=== PATIENT | female | born 1975 | race Caucasian/White ===

== ENCOUNTER 2023-03-08 15:58 | Emergency (ER) | payer OTHER, SELFPAY ==
[2023-03-08 16:03] VITALS: BP 120/69; PULSE 72; RESP 18; TEMP 36.7; O2SAT 98; BMI 40.7
--- NOTE | 2023-03-08 16:06 | ED.GENADULT ---
HPI - General Adult General Chief complaint: General Medical <KAI No - Last Filed: 03/08/23 20:40> Stated complaint: ? strep throat <KAI No - Last Filed: 03/08/23 20:40> Time Seen by Provider: 03/08/23 16:20 <KAI No - Last Filed: 03/08/23 20:40> Source: patient <KAI Gatica Last Filed: 03/08/23 18:18> Mode of arrival: ambulatory <KAI Gatica Last Filed: 03/08/23 18:18> Limitations: no limitations <KAI Gatica Last Filed: 03/08/23 18:18> History of Present Illness HPI narrative: Patient is a 47 year old assigned female at with no reported medical history presenting to the emergency department today with a sore throat. Patient states that over the last day or so she has had a sore throat. Patient denies any dizziness, lightheadedness, abdominal pain, nausea, vomiting, fever, chills, blurry vision, double vision, loss of vision, chest pain, difficulty breathing, shortness of breath, back pain, night sweats, pain with urination, increased urinary frequency, increased urinary urgency, blood in her urine or stool, syncope or a near syncopal episode, recent trauma or falls, bowel incontinence, bladder incontinence, bowel retention, bladder retention, or any other complaints at this time. <KAI Gatica Last Filed: 03/08/23 18:18> Onset (ago): day(s) (1) <KAI Gatica Last Filed: 03/08/23 18:18> Severity: mild <KAI Gatica Last Filed: 03/08/23 18:18> Severity scale (1-10): 2 <KAI Gatica Last Filed: 03/08/23 18:18> Relieving factors: none <KAI Gatica Last Filed: 03/08/23 18:18> Exacerbating factors: none <KAI Gatica Last Filed: 03/08/23 18:18> Associated symptoms: denies other symptoms <KAI Gatica Last Filed: 03/08/23 18:18> Treatments prior to arrival: none <KAI Gatica Last Filed: 03/08/23 18:18> Related Data Home medications: Previous Rx's Medication Instructions Recorded penicillin V potassium 500 mg 500 mg PO BID 10 days #20 tabs 03/08/23 tablet <KAI No Last Filed: 03/08/23 20:40> Allergies/adverse reactions: Allergies Allergy/AdvReac Type Severity Reaction Status Date / Time NSAIDS (Non-Steroidal Allergy Unknown Verified 03/08/23 16:06 Anti-Inflamma <KAI No Last Filed: 03/08/23 20:40> Review of Systems Constitutional: Constitutional: Reports no additional constitutional complaints, Denies chills, Denies fever(s) and Denies night sweats <KAI Gatica Last Filed: 03/08/23 18:18> Eyes: Eyes: Reports no additional eye complaints, Denies blurry vision, Denies change in vision, Denies diplopia, Denies eye discharge, Denies loss of vision and Denies eye pain <KAI Gatica Last Filed: 03/08/23 18:18> ENT: Denies dizziness and Reports sore throat <KAI Gatica Last Filed: 03/08/23 18:18> Cardiovascular: Cardiovascular: Reports no additional cardiovascular complaints, Denies chest pain, Denies lightheadedness, Denies Loss of Consciousness and Denies dyspnea <KAI Gatica Last Filed: 03/08/23 18:18> Respiratory: Respiratory: Reports no additional respiratory complaints and Denies dyspnea <KAI Gatica Last Filed: 03/08/23 18:18> Gastrointestinal: Gastrointestinal: Reports no additional gastrointestinal complaints, Denies abdominal pain, Denies melena, Denies hematochezia, Denies change in bowel habits and Denies change in stool character <KAI Gatica Last Filed: 03/08/23 18:18> Genitourinary: Genitourinary: Denies hematuria, Denies urinary frequency, Denies dysuria, Denies urinary incontinence, Denies urinary hesitancy and Denies urinary urgency <KAI Gatica Last Filed: 03/08/23 18:18> Musculoskeletal: Musculoskeletal: Reports no additional musculoskeletal complaints, Denies numbness and Denies tingling <KAI Gatica - Last Filed: 03/08/23 18:18> Neurologic: Denies dizziness, Denies loss of vision, Denies numbness and Denies tingling <KAI Gatica - Last Filed: 03/08/23 18:18> Psychiatric: Psychiatric: Reports no additional psychiatric complaints <KAI Gatica - Last Filed: 03/08/23 18:18> Endocrine: Endocrine: Reports no additional endocrine complaints <KAI Gatica - Last Filed: 03/08/23 18:18> Hematologic/Lymphatic: Hematologic/Lymphatic: Reports no additional hematologic/lymphatic complaints <KAI Gatica - Last Filed: 03/08/23 18:18> Allergic/Immunologic: Allergic/Immunologic: Reports no additional allergic/immunologic complaints <KAI Gatica - Last Filed: 03/08/23 18:18> PMF Past Medical History Attestation statement: The following information was validated with the patient. <KAI Gatica - Last Filed: 03/08/23 18:18> Source: old records reviewed and nursing notes reviewed <KAI Gatica - Last Filed: 03/08/23 18:18> Social History Social History: Social History Advance Directives: No Advance Directives Information Provided: No <KAI No - Last Filed: 03/08/23 20:40> Physical Exam ED Vital Signs: Vital Signs - 24 hr 03/08/23 16:03 Temperature 98.0 F Pulse Rate 72 Respiratory Rate 18 Blood Pressure 120/69 Pulse Oximetry 98 Oxygen Delivery Method Room Air BMI result Body Mass Index 40.7 <KAI No - Last Filed: 03/08/23 20:40> Vital Signs - 24 hr 03/08/23 16:03 Temperature 98.0 F Pulse Rate 72 Respiratory Rate 18 Blood Pressure 120/69 Pulse Oximetry 98 Oxygen Delivery Method Room Air BMI result Body Mass Index 40.7 <KAI Gatica - Last Filed: 03/08/23 18:18> Const General: cooperative, no acute distress, alert and awake <Nabila Fisher CA - Last Filed: 03/08/23 18:18> Nutritional Appearance: well nourished <Nabila Fisher CA - Last Filed: 03/08/23 18:18> Orientation/consciousness: patient oriented x3 <Nabila Fisher CA - Last Filed: 03/08/23 18:18> Limitations: no limitations <Nabila Fisher CA - Last Filed: 03/08/23 18:18> HENMT Head: Yes normal to inspection and Yes atraumatic <Nabila Fisher CA - Last Filed: 03/08/23 18:18> Ears: hearing grossly normal bilaterally and external ears normal <Nabila Fisher CA - Last Filed: 03/08/23 18:18> General nose exam: Normal external nose present, no nasal discharge noted and no epistaxis <Nabila Fisher CA - Last Filed: 03/08/23 18:18> Face and sinus: Yes normal facial exam, No abrasion and No laceration <Nabila Fisher CA - Last Filed: 03/08/23 18:18> Mouth: Normal oral and palatal mucosa present, no drooling and no muffled voice <Nabila Fisher CA - Last Filed: 03/08/23 18:18> Throat: Yes abnormal tonsil (bilateral erythema with exudates) <Nabila Fisher CA - Last Filed: 03/08/23 18:18> Eyes General: appearance normal, both eyes and all related structures <Nabila Fisher CA - Last Filed: 03/08/23 18:18> Periorbital: periorbital findings normal <Nabila Fisher CA - Last Filed: 03/08/23 18:18> Eyelids: Yes eyelids normal <Nabila Fisher CA - Last Filed: 03/08/23 18:18> Conjunctivae: conjunctivae normal <Nabila Fisher CA - Last Filed: 03/08/23 18:18> Pupils: Equal, round and reactive pupils present <Nabila Fisher PA - Last Filed: 03/08/23 18:18> EOM: EOMs intact bilaterally <Nabila Fisher CA - Last Filed: 03/08/23 18:18> Neck Neck: Yes normal visual inspection, Yes full ROM and Yes no lymphadenopathy <Nabilacarmel Friendjolene CA - Last Filed: 03/08/23 18:18> Chest Chest palpation & inspection: normal inspection of the chest <Nabila KAI Fisher - Last Filed: 03/08/23 18:18> Resp Effort & Inspection: normal respiratory effort and able to speak in complete sentences <Nabila Natalia CA - Last Filed: 03/08/23 18:18> GI Inspection: Yes normal to inspection <KAI Gatica - Last Filed: 03/08/23 18:18> Neuro General: patient oriented x3 and moves all extremities <Nabila Fisher CA - Last Filed: 03/08/23 18:18> Cranial nerves: Yes Equal, round and reactive pupils present <KAI Gatica - Last Filed: 03/08/23 18:18> Cognition (Neuro): normal cognition <Nabila Fisher CA - Last Filed: 03/08/23 18:18> Motor exam (neuro): 5/5 motor strength present throughout <Nabila Fisher CA - Last Filed: 03/08/23 18:18> Sensory Exam: Normal double simultaneous stimulation for sensation <Nabila Fisher CA - Last Filed: 03/08/23 18:18> Coordination: [id number] test normal <Nabila Fisher CA - Last Filed: 03/08/23 18:18> Extrem General: Yes normal to inspection, Yes full ROM and Yes capillary refill normal <KAI Gatica - Last Filed: 03/08/23 18:18> Psych Appearance: grossly normal <KAI Gatica - Last Filed: 03/08/23 18:18> Mental Status: mental status grossly normal <KAI Gatica - Last Filed: 03/08/23 18:18> Affect: normal affect <KAI Gatica - Last Filed: 03/08/23 18:18> Attitude: cooperative <KAI Gatica - Last Filed: 03/08/23 18:18> Thought process: Normal thought process present <KAI Gatica - Last Filed: 03/08/23 18:18> Thought content: Normal thought content present <KAI Gatica - Last Filed: 03/08/23 18:18> Insight: Good insight present (Psych) <KAI Gatica - Last Filed: 03/08/23 18:18> Course Course Course Narrative: RMMarcell; 47 yold female presents to the ED for sore throat and pmh of strep. Physical exam shows tonsil with exudates. negative for signs of [employer]. strep ordered <KAI No - Last Filed: 03/08/23 20:40> Medical Decision Making Medical Decision Making MDM Narrative: Patient is a 47 year old assigned female at with no reported medical history presenting to the emergency department today with a sore throat. Patient's physical exam showed bilateral tonsilar erythema and exudates. Patient's strep test was negative however, given the patient's physical examination, will cover. I explained my physical exam findings as well as all test results to the patient. I answered all questions asked by the patient. I stressed the importance of the patient taking her medication as prescribed. I stressed the importance of the patient following up with her primary care provider. I stressed the importance of the patient returning to the emergency department immediately if her symptoms were to worsen or if she were to develop any dizziness, shortness of breath, difficulty breathing, chest pain, blurry vision, loss of vision, nausea, vomiting, abdominal pain, fever, chills, back pain, or any other complaints. Patient verbalized agreement and understanding with this treatment plan and discharge. <KAI Gatica - Last Filed: 03/08/23 18:18> Differential Diagnosis Differential Diagnoses: The differential diagnosis associated with the presentation includes <KAI Gatica - Last Filed: 03/08/23 18:18> pharyngitis <KAI Gatica - Last Filed: 03/08/23 18:18> Lab Data [facility] Lab Attestation statement: I reviewed the patient's lab results. <KAI Gatica Last Filed: 03/08/23 18:18> Labs: Lab Results 03/08/23 Range/Units 16:07 S. pyogenes GrpA LAURENT Negative (Negative) <KAI No Last Filed: 03/08/23 20:40> Lab Results 03/08/23 Range/Units 16:07 S. pyogenes GrpA LAURENT Negative (Negative) <KAI Gatica - Last Filed: 03/08/23 18:18> Discharge Plan Discharge Clinical Impression: Pharyngitis <KAI No Last Filed: 03/08/23 20:40> Patient Disposition: Home, Self-Care <KAI No Last Filed: 03/08/23 20:40> Instructions: Pharyngitis (ED) <KAI No Last Filed: 03/08/23 20:40> Additional Instructions: Follow up with your primary care provider. Return to the emergency department immediately if your symptoms worsen or if you develop any dizziness, shortness of breath, difficulty breathing, chest pain, blurry vision, loss of vision, nausea, vomiting, abdominal pain, fever, chills, back pain, or any other complaints. <KAI No Last Filed: 03/08/23 20:40> Prescriptions: New penicillin V potassium 500 mg tablet 500 mg PO BID 10 Days Qty: 20 0RF <KAI No Last Filed: 03/08/23 20:40> Referrals: [facility] [[place] Group] (Call to establish and follow up with a primary care provider. If you already have a primary care provider, please follow up with them.) [facility] [place] [facility] [Provider Group] (Call to establish and follow up with a primary care provider. If you already have a primary care provider, please follow up with them.) [facility] [place] [facility] [Provider Group] (Call to establish and follow up with a primary care provider. If you already have a primary care provider, please follow up with them.) <KAI No - Last Filed: 03/08/23 20:40> Stand Alone Forms: Work/School Release <KAI No Last Filed: 03/08/23 20:40> Interventions: ED Discharge Assessment Last Done: 03/08/23 17:29 <KAI No Last Filed: 03/08/23 20:40> Discharge Date/Time: 03/08/23 17:29 <KAI No Last Filed: 03/08/23 20:40> Print Language: Filipino <KAI No Last Filed: 03/08/23 20:40>
[2023-03-08 16:33] LABS: IDNOW Serial# 08D9AD1C
[2023-03-08 16:34] LABS: Strep A Nucleic Acid Negative (Negative)
== END 2023-03-08 17:29 | disposition home or self-care (01) ==
PROVIDERS: Emergency Provider Student in an Organized Health Care Education/Training Program
DX: J02.9 Acute pharyngitis, unspecified (principal)
CPT/HCPCS: 87651; 99282; 99283

== ENCOUNTER 2023-10-01 17:26 | Emergency (ER) | payer OTHER, SELFPAY ==
--- NOTE | ~2023-10-01 | XR_ITS ---
EXAMINATION: XR CHEST CLINICAL INFORMATION: Chest pain, dyspnea. COMPARISON: None available. TECHNIQUE: 2 views of the chest were obtained. FINDINGS: Normal appearance of the cardiomediastinal silhouette. No focal airspace opacity, pleural effusion or pneumothorax. No pulmonary edema. No acute osseous findings. Right upper quadrant surgical clips. XR/XR chest 2V IMPRESSION: No acute cardiopulmonary findings.
[2023-10-01 17:27] VITALS: BP 137/74; PULSE 90; RESP 18; TEMP 36.8; O2SAT 95; BMI 41.6
--- NOTE | 2023-10-01 17:28 | ECG_ITS ---
Test Reason : CHEST PRESSURE Blood Pressure : / mmHG Vent. Rate : 078 BPM Atrial Rate : 078 BPM P-R Int : 176 ms QRS Dur : 158 ms QT Int : 414 ms P-R-T Axes : 062 172 023 degrees QTc Int : 471 ms Normal sinus rhythm Right bundle branch block Left posterior fascicular block Bifascicular block Abnormal ECG No previous ECGs available Referred By: Brooke Mulligan Electronically Signed By:DARRIAN HACKETT MD
--- NOTE | 2023-10-01 17:28 | ED.GENADULT ---
HPI - General Adult General Chief complaint: Chest Pain Stated complaint: Chest pain, julio cesar sent her here. Related Data Previous Rx's Medication Instructions Recorded penicillin V potassium 500 mg 500 mg PO BID 10 days #20 tabs 03/08/23 tablet Allergies Allergy/AdvReac Type Severity Reaction Status Date / Time NSAIDS (Non-Steroidal Allergy Unknown Verified 10/01/23 17:30 Anti-Inflamma PMFSH Social History Social History Advance Directives: No Physical Exam ED Vital Signs: Vital Signs - 24 hr 10/01/23 17:27 Temperature 98.2 F Pulse Rate 90 Respiratory Rate 18 Blood Pressure 137/74 Pulse Oximetry 95 Oxygen Delivery Method Room Air BMI result Body Mass Index 41.6 Course Course Course Narrative: This is a rapid medical exam: Additional HPI, ROS, PE not included below will be deferred to primary provider. Patient is a 47-year-old female referred to the ED from PCP for abnormal EKG. Patient reports intermittent chest pain and pressure for months. Also complains of shortness of breath and upper back pain. Rates current pain at 5/10. Plan: EKG, CXR, labs Discharge Plan Discharge Clinical Impression: Chest pain Patient Disposition: Left W/O Completing Treatment Prescriptions: No Action penicillin V potassium 500 mg tablet 500 mg PO BID 10 Days Qty: 20 0RF
== END 2023-10-01 20:38 | disposition left against medical advice (07) ==
PROVIDERS: Emergency Provider Emergency Medicine
DX: R07.89 Other chest pain (principal); I45.10 Unspecified right bundle-branch block
CPT/HCPCS: 71046; 93005; 99283

== ENCOUNTER 2024-06-03 15:49 | Emergency (ER) | payer OTHER, SELFPAY ==
--- NOTE | ~2024-06-03 | XR_ITS ---
EXAMINATION: XR CHEST CLINICAL INFORMATION: Cough. Chest pain. COMPARISON: None available. TECHNIQUE: 2 views of the chest were obtained. FINDINGS: Cardiac silhouette is normal in size. The lungs are well aerated. There is no lobar consolidation. No pleural effusion or pneumothorax. Mild degenerative changes of the spine. XR/XR chest 2V IMPRESSION: No acute pulmonary pathology.
[2024-06-03 15:57] VITALS: BP 115/59; PULSE 75; RESP 16; TEMP 36.6; O2SAT 95; BMI 42.5
--- NOTE | 2024-06-03 16:00 | ED.GENADULT ---
HPI - General Adult General Chief complaint: Upper Respiratory Symptoms Stated complaint: sore throat cough Time Seen by Provider: 06/03/24 17:24 Source: patient Mode of arrival: ambulatory Limitations: no limitations History of Present Illness ED Provider: Nabila Fisher PA-C HPI narrative: Patient is a 48 year old assigned female at with no reported medical history presenting to the emergency department today with a sore throat and a cough. Patient states that over the last week she has had a cough and a sore throat. Patient denies any dizziness, lightheadedness, abdominal pain, nausea, vomiting, fever, chills, blurry vision, double vision, loss of vision, chest pain, difficulty breathing, shortness of breath, back pain, night sweats, pain with urination, increased urinary frequency, increased urinary urgency, blood in her urine or stool, syncope or a near syncopal episode, recent trauma or falls, bowel incontinence, bladder incontinence, or any other complaints at this time. Onset (ago): week(s) (1) Severity: mild Severity scale (1-10): 3 Relieving factors: none Exacerbating factors: none Associated symptoms: cough Treatments prior to arrival: none Related Data Previous Rx's ?Medication ?Instructions ?Recorded penicillin V potassium 500 mg 500 mg PO BID 10 days #20 tabs 03/08/23 tablet Allergies Allergy/AdvReac Type Severity Reaction Status Date / Time NSAIDS (Non-Steroidal Allergy Unknown Verified 06/03/24 16:03 Anti-Inflamma Review of Systems Constitutional: Constitutional: Reports no additional constitutional complaints, Denies chills, Denies fever(s) and Denies night sweats Eyes: Eyes: Reports no additional eye complaints, Denies blurry vision, Denies change in vision, Denies diplopia, Denies eye discharge, Denies loss of vision and Denies eye pain ENT: Denies dizziness and Reports sore throat Cardiovascular: Cardiovascular: Reports no additional cardiovascular complaints, Denies chest pain, Denies lightheadedness, Denies Loss of Consciousness and Denies dyspnea Respiratory: Respiratory: Reports no additional respiratory complaints and Denies dyspnea Gastrointestinal: Gastrointestinal: Reports no additional gastrointestinal complaints, Denies abdominal pain, Denies melena, Denies hematochezia, Denies change in bowel habits and Denies change in stool character Genitourinary: Genitourinary: Denies hematuria, Denies urinary frequency, Denies dysuria, Denies urinary incontinence, Denies urinary hesitancy and Denies urinary urgency Musculoskeletal: Musculoskeletal: Reports no additional musculoskeletal complaints, Denies numbness and Denies tingling Neurologic: Denies dizziness, Denies loss of vision, Denies numbness and Denies tingling Psychiatric: Psychiatric: Reports no additional psychiatric complaints Endocrine: Endocrine: Reports no additional endocrine complaints Hematologic/Lymphatic: Hematologic/Lymphatic: Reports no additional hematologic/lymphatic complaints Allergic/Immunologic: Allergic/Immunologic: Reports no additional allergic/immunologic complaints [facility] Past Medical History Attestation statement: The following information was validated with the patient. Source: old records reviewed and nursing notes reviewed Social History Social History Advance Directives: No Advance Directives Information Provided: No Do you have a plan to hurt others: No Plan Physical Exam ED Vital Signs: Vital Signs - 24 hr 06/03/24 15:57 Temperature 97.9 F Pulse Rate 75 Respiratory Rate 16 Blood Pressure 115/59 L Pulse Oximetry 95 Oxygen Delivery Method Room Air BMI result Body Mass Index 42.5 Const General: cooperative, no acute distress, alert and awake Nutritional Appearance: well nourished Orientation/consciousness: patient oriented x3 Limitations: no limitations HENMT Head: Yes normal to inspection and Yes atraumatic Ears: hearing grossly normal bilaterally and external ears normal General nose exam: Normal external nose present, no nasal discharge noted and no epistaxis Face and sinus: Yes normal facial exam, No abrasion and No laceration Mouth: Normal oral and palatal mucosa present, no drooling and no muffled voice Eyes General: appearance normal, both eyes and all related structures Periorbital: periorbital findings normal Eyelids: Yes eyelids normal Conjunctivae: conjunctivae normal Pupils: Equal, round and reactive pupils present EOM: EOMs intact bilaterally Neck Neck: Yes normal visual inspection, Yes full ROM and Yes no lymphadenopathy Chest Chest palpation & inspection: normal inspection of the chest Resp Effort & Inspection: normal respiratory effort and able to speak in complete sentences GI Inspection: Yes normal to inspection Neuro General: patient oriented x3 and moves all extremities Cranial nerves: Yes Equal, round and reactive pupils present Cognition (Neuro): normal cognition Extrem General: Yes normal to inspection, Yes full ROM and Yes capillary refill normal Psych Appearance: grossly normal Mental Status: mental status grossly normal Affect: normal affect Attitude: cooperative Thought process: Normal thought process present Thought content: Normal thought content present Insight: Good insight present (Psych) Course Course Course Narrative: This is a Rapid Medical Examination (RME) performed by Keith Calix PA-C in triage. Full HPI, ROS, assessment and treatment plan per primary provider in the Main ED. 48 yo female here for eval of sore throat and cough. now having chest pain/ pressure since yesterday. constant. grand children are sick at home with upper respiratory symptoms. posterior oropharynx erythematous. no exudats. uvula midline. speaking in full sentences. Plan: labs, ekg, cxr, viral/strep swabs ordered Medical Decision Making Medical Decision Making [facility] Narrative: Patient is a 48 year old assigned female at with no reported medical history presenting to the emergency department today with a sore throat and a cough. Patient's physical exam was unremarkable. Patient's blood work was unremarkable. Patient's EKG was unremarkable. Patient's chest x-ray showed no acute process. Patient's COVID-19, influenza, and strep swabs were negative. I went to explain my physical exam findings as well as all test results to the patient however, the patient was gone and left a hand written note that stated If I need antibiotics, please call [phone] . I called the patient and informed her she did not need antibiotics and reviewed her physical exam findings and test results. Patient was verbally discharged. Differential Diagnosis Differential Diagnoses: The differential diagnosis associated with the presentation includes Pharyngitis COVID-19 Influenza Admission/Observation Consideration of admission/observation: Escalation of care including admission/observation considered Patient would have been admitted to the hospital had her work up had any findings where hospital admission was appropriate and her clinical presentation warranted hospital admission. Lab Data [facility] Lab Attestation statement: I reviewed the patient's lab results. My interpretation of these results are in the [facility] Rationale portion of this note. 06/03/24 16:22 06/03/24 16:22 Labs: Lab Results 06/03/24 Range/Units 16:22 WBC 9.2 (4.8-10.8) X10*3/uL RBC 4.34 (4.20-5.50) X10*6/uL Hgb 13.2 (12.0-16.0) g/dl Hct 39.4 (37.0-47.0) % MCV 90.8 (80.0-98.0) fL MCH 30.4 (27.0-33.0) pg MCHC 33.5 (31.0-35.0) g/dl RDW 13.0 (11.0-16.0) % Plt Count 299 (160-400) X10*3/uL MPV 9.4 (9.4-12.3) fL Immature Gran % (Auto) 0.9 H (0.0-0.4) % Neut % (Auto) 60.5 (45-73) % Lymph % (Auto) 28.3 (20-40) % Sutter % (Auto) 6.3 (2-11) % Eos % (Auto) 2.9 (0-4) % Baso % (Auto) 1.1 (0-2) % Lymph # (Auto) 2.6 (1.2-4.9) X10*3/uL Sutter # (Auto) 0.6 (0.1-1.2) X10*3/uL Eos # (Auto) 0.3 (0.0-0.4) X10*3/uL Baso # (Auto) 0.1 (0.0-0.2) X10*3/uL Abs Immat Gran (auto) 0.08 H (0.00-0.03) X10*3/uL Absolute Neuts (auto) 5.6 (2.0-8.3) x10*3/uL Absolute Nucleated RBC 0.000 (0.0-0.012) X10*3/uL Nucleated RBC % (auto) 0.0 (0.0-0.2) /100WBC PT 12.1 (11.1-13.3) SEC INR 1.0 (0.9-1.1) Sodium 143 (135-145) mmol/L Potassium 4.6 (3.3-5.1) mmol/L Chloride 104 (96-108) mmol/L Carbon Dioxide 34 H (22-29) mmol/L Anion Gap 10 L (12-20) BUN 8 L (9-16) mg/dL Creatinine 0.79 (0.5-1.4) mg/dL Estim Creat Clear Calc 100.8 Estimated GFR > 60 Random Glucose 116 H (60-115) mg/dL Calcium 9.9 (8.4-10.2) mg/dL Magnesium 2.0 (1.6-2.6) mg/dL Total Bilirubin 0.2 (0.0-1.0) mg/dL AST 18 (5-31) U/L ALT 21 (0-31) U/L Alkaline Phosphatase 95 (39-117) U/L Troponin I High Sens < 2.7 (<3.5-17.0) ng/L Total Protein 7.9 (6.5-8.0) g/dL Albumin 3.9 (3.5-5.0) g/dL Lipase 26 (8-78) U/L Influenza Type A (PCR) NEGATIVE (Negative) Influenza Type B (PCR) NEGATIVE (Negative) RSV RNA Qual (PCR) NEGATIVE (Negative) SARS-CoV-2 RNA (RT-PCR) NEGATIVE (Negative) S. pyogenes GrpA LAURENT Negative (Negative) Independent Interpretation I performed an independent interpretation of an: EKG and Plain X-Ray Interpretation: My interpretation is in agreement with the radiologist's impression of this imaging study. EXAMINATION: XR CHEST CLINICAL INFORMATION: Cough. Chest pain. COMPARISON: None available. TECHNIQUE: 2 views of the chest were obtained. FINDINGS: Cardiac silhouette is normal in size. The lungs are well aerated. There is no lobar consolidation. No pleural effusion or pneumothorax. Mild degenerative changes of the spine. XR/XR chest 2V IMPRESSION: No acute pulmonary pathology. Dictated By: Richard Wheatley MD Signed By: Electronically signed by Richard Wheatley MD 06/03/24 1647 Vent. Rate: 082 BPM Atrial Rate: 082 BPM P-R Int: 170 ms QRS Dur: 098 ms QT Int: 374 ms P-R-T Axes: 064 247 051 degrees QTc Int: 436 ms Normal sinus rhythm Right superior axis deviation Right ventricular hypertrophy Inferior infarct, age undetermined Abnormal ECG When compared with ECG of 01-OCT-2023 17:37, (RBBB and left posterior fascicular block) is no longer Present DD/ 1607 Radiology Impression Discussion of test interpretation with radiology: I have reviewed the radiologist's reading. Discharge Plan Discharge Clinical Impression: Pharyngitis Patient Disposition: Home, Self-Care Instructions: Pharyngitis (ED) Additional Instructions: Follow up with your primary care provider. Return to the emergency department immediately if your symptoms worsen or if you develop any dizziness, shortness of breath, difficulty breathing, chest pain, blurry vision, loss of vision, nausea, vomiting, abdominal pain, fever, chills, back pain, or any other complaints. Prescriptions: No Action penicillin V potassium 500 mg tablet 500 mg PO BID 10 Days Qty: 20 0RF Referrals: [facility] [[place]] (Call to establish and follow up with a primary care provider. If you already have a primary care provider, please follow up with them.) [facility]] [facility] [[facility]] Print Language: Maori
--- NOTE | 2024-06-03 16:02 | ECG_ITS ---
Test Reason : CHEST PAIN Blood Pressure : / mmHG Vent. Rate : 082 BPM Atrial Rate : 082 BPM P-R Int : 170 ms QRS Dur : 098 ms QT Int : 374 ms P-R-T Axes : 064 247 051 degrees QTc Int : 436 ms Normal sinus rhythm Right superior axis deviation Right ventricular hypertrophy Inferior infarct , age undetermined Abnormal ECG When compared with ECG of 01-OCT-2023 17:37, (RBBB and left posterior fascicular block) is no longer Present Referred By: Raisa Calix Electronically Signed By:MEENU SAN
[2024-06-03 16:29] LABS: MANUAL DIFF FLAG NO
[2024-06-03 16:40] LABS: Basophils Absolute Auto 0.1 X10*3/uL (0.0-0.2); Basophils Percent Auto 1.1 % (0-2); Eosinophils Absolute Auto 0.3 X10*3/uL (0.0-0.4); Eosinophils Percent Auto 2.9 % (0-4); Hematocrit 39.4 % (37.0-47.0); Hemoglobin 13.2 g/dl (12.0-16.0); Imm Gran Abs Auto 0.08 X10*3/uL (0.00-0.03); Imm Gran Pct Auto 0.9 % (0.0-0.4); Lymphocytes Absolute Auto 2.6 X10*3/uL (1.2-4.9); Lymphocytes Percent Auto 28.3 % (20-40); Mean Corpuscular HGB Conc 33.5 g/dl (31.0-35.0); Mean Corpuscular Hemoglobin 30.4 pg (27.0-33.0); Mean Corpuscular Volume 90.8 fL (80.0-98.0); Mean Platelet Volume 9.4 fL (9.4-12.3); Monocytes Absolute Auto 0.6 X10*3/uL (0.1-1.2); Monocytes Percent Auto 6.3 % (2-11); Neutrophils Absolute Auto 5.6 x10*3/uL (2.0-8.3); Neutrophils Percent Auto 60.5 % (45-73); Platelet Count 299 X10*3/uL (160-400); Red Blood Count 4.34 X10*6/uL (4.20-5.50); White Blood Count 9.2 X10*3/uL (4.8-10.8)
[2024-06-03 16:42] LABS: Prothrombin Time 12.1 SEC (11.1-13.3)
[2024-06-03 16:45] LABS: Alanine Aminotransferase 21 U/L (0-31); Albumin Level 3.9 g/dL (3.5-5.0); Alkaline Phosphatase 95 U/L (39-117); Anion Gap 10 (12-20); Aspartate Amino Transferase 18 U/L (5-31); Bilirubin Total 0.2 mg/dL (0.0-1.0); Blood Urea Nitrogen 8 mg/dL (9-16); Calcium 9.9 mg/dL (8.4-10.2); Carbon Dioxide 34 mmol/L (22-29); Chloride 104 mmol/L (96-108); Creatinine Clr Calc Pharmacy 100.8; Estimated Glomerular Filt Rate > 60; Glucose Random 116 mg/dL (60-115); Lipase 26 U/L (8-78); Potassium 4.6 mmol/L (3.3-5.1); Sodium 143 mmol/L (135-145); Total Protein 7.9 g/dL (6.5-8.0)
[2024-06-03 16:58] LABS: Troponin-I High Sensitivity < 2.7 ng/L (<3.5-17.0)
[2024-06-03 17:09] LABS: Influenza A PCR NEGATIVE (Negative); Influenza B PCR NEGATIVE (Negative); Resp Syncy Virus RNA Qual PCR NEGATIVE (Negative); SARS COV2 PCR INHOUSE NEGATIVE (Negative)
[2024-06-03 17:32] LABS: IDNOW Serial# 08D9AD1C; Strep A Nucleic Acid Negative (Negative)
--- NOTE | 2024-06-03 18:09 | PC.NURSE ---
Provider Nabila went into room to touch base with patient/review discharge plan. Patient not in room. Upon further examination of room, this RN found a note stating to call the patient if she needs antibiotics, provider made aware. Patient did not wait for discharge paperwork.
[2024-06-03 18:11] VITALS: BP 115/59; PULSE 75; RESP 16; TEMP 36.6; O2SAT 95
== END 2024-06-03 18:00 | disposition home or self-care (01) ==
PROVIDERS: Physician Assistant Medical; Emergency Provider Emergency Medicine Emergency Medical Services
DX: J02.9 Acute pharyngitis, unspecified (principal); R07.9 Chest pain, unspecified; R05.9 Cough, unspecified; Z03.818 Encounter for observation for suspected exposure to other biological agents ruled out
CPT/HCPCS: 0241U; 71046; 80053; 83690; 83735; 84484; 85025; 85610; 87651; 93005; 99283

== ENCOUNTER → 2024-06-03 16:02 | Outpatient (BNV) | payer OTHER, SELFPAY | PROVIDERS: Emergency Provider Emergency Medicine Emergency Medical Services; Visit Provider Internal Medicine | DX: R07.9 Chest pain, unspecified (principal); R94.31 Abnormal electrocardiogram [ECG] [EKG] | CPT/HCPCS: 93010 ==